=== PATIENT | female | born 2000 | race Caucasian/White ===

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

== ENCOUNTER 2019-03-04 15:10 | Emergency (ER) | payer SELFPAY ==
[2019-03-04 15:27] VITALS: BP 127/74
--- NOTE | 2019-03-04 15:37 | UC ---
Dental HPI - HPI Summary HPI Summary: [facility] Reference #: [id number] patient has had upper L wisdom tooth pain off and on for weeks. was doing well with OTC ibuprofen until pain got got worse over past 3-5 days took one vicoden from girlfriend for severe pain yesterday which worked well for several hours. she intends to see DDS MICHELLE. Pain currently 8:10 - History of Current Complaint Chief Complaint: UCDentalProblem Stated Complaint: DENTAL Hx Obtained From: Patient Hx Last Menstrual Period: [id number] ?: No Onset/Duration: Gradual Onset Severity: Severe Pain Intensity: 7 Aggravating Factor(s): Heat, Cold, Chewing Alleviating Factor(s): Other (see comments) - vicoden - Allergies/Home Medications Allergies/Adverse Reactions: Allergies Allergy/AdvReac Type Severity Reaction Status Date / Time MS Blackberry Flavor Allergy Hives Verified 03/04/19 15:28 [Blackberry Flavor] blackberry Allergy Hives Uncoded 03/04/19 15:28 Home Medications: Home Medications Acetaminophen TAB* [Tylenol TAB*] 975 mg PO Q4H PRN 03/04/19 [History Confirmed 03/04/19] Ibuprofen TAB* [Motrin TAB* 600 MG] 600 mg PO Q6H PRN 03/04/19 [History Confirmed 03/04/19] PMH/Surg Hx/FS Hx/Imm Hx Previously Healthy: Yes Psychological History: Anxiety, Depression Other History Of: Negative For: HIV, Hepatitis B, Hepatitis C, Anticoagulant Therapy - Surgical History Surgical History: Yes Surgery Procedure, Year, and Place: RIGHT ELBOW SURGERY, TOE SURGERY, 3 wisdom teeth extraction - Family History Known Family History: Positive: None, Cardiac Disease, Hypertension, Diabetes - Social History Occupation: Unemployed Lives: With Family Alcohol Use: Occasionally Substance Use Type: Marijuana Substance Use Comment - Amount & Last Used: approx every 2 days Smoking Status (MU): Current Some Day Smoker Type: Cigarettes Amount Used/How Often: 3-5 CIG PER DAY Have You Smoked in the Last Year: Yes Household Exposure Type: Cigarettes Cessation Counseling: Patient Advised to Stop - Immunization History Most Recent Influenza Vaccination: no Vaccination Up to Date: Yes Review of Systems All Other Systems Reviewed And Are Negative: Yes Constitutional: Positive: Negative. Negative: Fever, Chills Skin: Positive: Negative ENT: Positive: Dental Pain. Negative: Sinus Congestion, Sinus Pain/Tenderness Respiratory: Positive: Negative Cardiovascular: Positive: Negative Musculoskeletal: Positive: Negative Neurological: Positive: Negative Psychological: Positive: Negative Is Patient Immunocompromised?: No Physical Exam Triage Information Reviewed: Yes Appearance: Well-Appearing, Pain Distress - holding L side mouth Vital Signs: Initial Vital Signs Temp 98.6 F 03/04/19 15:22 Pulse 85 03/04/19 15:22 Resp 16 03/04/19 15:22 BP 127/74 03/04/19 15:22 Pulse Ox 99 03/04/19 15:22 Vital Signs Reviewed: Yes Dental: Positive: Percussion Tenderness @, Other: - gum is mildly swollena nd erythemic L upper 3rd molar, no drainage. Negative: Gross Decay/Caries @ - L upper wisdom tooth Neck: Positive: No Lymphadenopathy Respiratory Exam: Normal Respiratory: Positive: Lungs clear Cardiovascular Exam: Normal Cardiovascular: Positive: RRR Neurological Exam: Normal Psychological Exam: Normal Skin Exam: Normal Dental Complaint Course/Dx - Course Course Of Treatment: patient girlfriend here to drive pt home - Differential Dx/Diagnosis Differential Diagnosis/Dx: Dental Abscess, Dental Caries, Fractured Tooth, TMJ Syndrome Provider Diagnosis: Toothache Discharge - Sign-Out/Discharge Documenting (check all that apply): Patient Departure All imaging exams completed and their final reports reviewed: No Studies - Discharge Plan Condition: Stable Disposition: HOME Prescriptions: HYDROcodone/ACETAMIN 5-325 MG* [[place] 5-325 TAB*] 1 tab PO Q4H PRN #30 tab MDD 6 PRN Reason: Pain (Dental) Penicillin VK TAB* [Penicillin VK 250 mg Tab*] 250 mg PO QID #40 tab Referrals: Charla Carter MD [Primary Care Provider] - - Billing Disposition and Condition Condition: STABLE Disposition: Home
[2019-03-04] MEDS ORDERED: HYDROcodone/ACETAMIN 5-325 MG* 1 TAB PO ONE (15:45)
== END 2019-03-04 16:30 | disposition home or self-care (01) ==
LOC: UCEAST 15:10
DX: K08.89 Other specified disorders of teeth and supporting structures (principal); F17.210 Nicotine dependence, cigarettes, uncomplicated; F41.9 Anxiety disorder, unspecified; F32.9 Major depressive disorder, single episode, unspecified
CPT/HCPCS: 99212; G0463

== ENCOUNTER 2019-07-14 20:06 | Emergency (ER) | payer OTHER ==
[2019-07-14 20:23] VITALS: BP 120/74
--- NOTE | 2019-07-14 20:26 | UC ---
[facility] HPI - HPI Summary HPI Summary: She's been having a toothache in the upper left side for many months on and off. She was seen here in February and prescribed antibiotics and pain medication. She has for dialysis and states she has been unable to find a dental practice to follow up with. She's been using ibuprofen but it isn't helping the last few days. - History of Current Complaint Stated Complaint: TOOTH PAIN Time Seen by Provider: 07/14/19 20:17 Hx Obtained From: Patient Hx Last Menstrual Period: [id number] Onset/Duration: Gradual Onset, Lasting Weeks Severity: Moderate - Allergies/Home Medications Allergies/Adverse Reactions: Allergies Allergy/AdvReac Type Severity Reaction Status Date / Time blackberry Allergy Hives Uncoded 07/14/19 20:19 PMH/Surg Hx/FS Hx/Imm Hx Previously Healthy: Yes Other History Of: Negative For: HIV, Hepatitis B, Hepatitis C, Anticoagulant Therapy - Surgical History Surgical History: Yes Surgery Procedure, Year, and Place: RIGHT ELBOW SURGERY, TOE SURGERY, 3 wisdom teeth extraction - Family History Known Family History: Positive: None, Cardiac Disease, Hypertension, Diabetes - Social History Alcohol Use: Occasionally Substance Use Type: Marijuana Substance Use Comment - Amount & Last Used: approx every 2 days Smoking Status (MU): Current Some Day Smoker Type: Cigarettes Amount Used/How Often: 3-5 CIG PER DAY Have You Smoked in the Last Year: Yes Household Exposure Type: Cigarettes - Immunization History Most Recent Influenza Vaccination: no Vaccination Up to Date: Yes Review of Systems All Other Systems Reviewed And Are Negative: Yes Constitutional: Positive: Negative Skin: Positive: Negative ENT: Positive: Dental Pain Physical Exam - Summary Physical Exam Summary: She is nontoxic in appearance with stable vitals Triage Information Reviewed: Yes Appearance: Well-Appearing Vital Signs Reviewed: Yes Eye Exam: Normal ENT Exam: Normal Dental: Positive: Gross Decay/Caries @. Negative: Abscess @, Cellulitis @, Cervical Lymphadenopathy Neck exam: Normal Neck: Positive: No Lymphadenopathy Dental Complaint Course/Dx - Course Course Of Treatment: We gave her a list of dentists that should take [facility]. I will treat her with penicillin and tramadol - Differential Dx/Diagnosis Provider Diagnosis: Tooth ache Discharge ED - Sign-Out/Discharge Documenting (check all that apply): Patient Departure All imaging exams completed and their final reports reviewed: No Studies - Discharge Plan Condition: Stable Disposition: HOME Patient Education Materials: Toothache (ED) Referrals: No Primary Care Phys,NOPCP [Primary Care Provider] - Additional Instructions: Please follow up with a dentist. We have given you a list that should except your [employer] insurance. - Billing Disposition and Condition Condition: STABLE Disposition: Home
== END 2019-07-14 20:30 | disposition home or self-care (01) ==
LOC: UCEAST 20:06
DX: K08.89 Other specified disorders of teeth and supporting structures (principal); F17.210 Nicotine dependence, cigarettes, uncomplicated; Z91.018 Allergy to other foods
CPT/HCPCS: 99212; G0463

== ENCOUNTER 2019-08-07 14:57 | Emergency (ER) | payer OTHER ==
[2019-08-07 15:09] VITALS: BP 134/73
--- NOTE | 2019-08-29 22:05 | UC ---
Dental HPI - HPI Summary HPI Summary: 19 year old female with complaints of left upper tooth pain- has an impacted wisdom tooth that she was set to get removed, however she missed her appointment with her dentist 2 days ago. Increased pain, swelling, low grade fever. no difficulty swallowing. - History of Current Complaint Chief Complaint: UCDentalProblem Stated Complaint: DENTAL COMPLAINT Time Seen by Provider: 08/07/19 15:41 Hx Obtained From: Patient Hx Last Menstrual Period: 07/20/19 ?: No Onset/Duration: Sudden Onset Severity: Moderate Pain Intensity: 6 Pain Scale Used: 0-10 Numeric Aggravating Factor(s): Chewing Alleviating Factor(s): OTC Meds - Allergies/Home Medications Allergies/Adverse Reactions: Allergies Allergy/AdvReac Type Severity Reaction Status Date / Time blackberry Allergy Hives Uncoded 08/07/19 15:08 Home Medications: Home Medications Acetaminophen [Acetaminophen Extra Strength] 500 mg PO ONCE 08/07/19 [History Confirmed 08/07/19] Ibuprofen 600 mg PO ONCE 08/07/19 [History Confirmed 08/07/19] PMH/Surg Hx/FS Hx/Imm Hx Previously Healthy: Yes Other History Of: Negative For: HIV, Hepatitis B, Hepatitis C, Anticoagulant Therapy - Surgical History Surgical History: Yes Surgery Procedure, Year, and Place: RIGHT ELBOW SURGERY, TOE SURGERY, 3 wisdom teeth extraction - Family History Known Family History: Positive: None, Cardiac Disease, Hypertension, Diabetes, Non-Contributory - Social History Lives: Alone Alcohol Use: Occasionally Substance Use Type: Marijuana Substance Use Comment - Amount & Last Used: approx every 2 days Smoking Status (MU): Current Some Day Smoker Type: Cigarettes Amount Used/How Often: 3-5 CIG PER DAY Have You Smoked in the Last Year: Yes Household Exposure Type: Cigarettes - Immunization History Most Recent Influenza Vaccination: no Vaccination Up to Date: Yes Review of Systems All Other Systems Reviewed And Are Negative: Yes Constitutional: Positive: Fever, Chills Skin: Positive: Rash, Other - swelling ENT: Positive: Ear Ache Neurological: Positive: Headache Is Patient Immunocompromised?: No Physical Exam Triage Information Reviewed: Yes Appearance: Well-Appearing, Well-Nourished, Pain Distress - mild Vital Signs: Initial Vital Signs Temp 100.1 F 08/07/19 15:05 Pulse 79 08/07/19 15:05 Resp 18 08/07/19 15:05 BP 134/73 08/07/19 15:05 Pulse Ox 100 08/07/19 15:05 Vital Signs Reviewed: Yes Eyes: Positive: Conjunctiva Clear ENT: Positive: Pharynx normal, TMs normal, Uvula midline. Negative: Tonsillar swelling, Tonsillar exudate, Sinus tenderness Dental: Positive: Other: - gingivitis left upper, mild edema around left upper jaw, TTP over harlan-aur LNs L Neck: Positive: Supple, Nontender, Enlarged Nodes @ - left periauriclar Respiratory: Positive: Chest non-tender, Lungs clear, Normal breath sounds, No respiratory distress, No accessory muscle use. Negative: Crackles, Rhonchi, Stridor Neurological Exam: Normal Psychological Exam: Normal Dental Complaint Course/Dx - Course Course Of Treatment: Dental cavity- - Follow up with Dentist- continue to find a place on [place] from the list you were given. Important to keep appointment due to possible spread of infection. - Amoxicillin twice daily x 10 days - Motrin as needed for mild to moderat pain - Tramadol as needed for severe pain - Ice area to help with pain - REutrn with increased pain, fever, chills, decreased/ painful swallowing. - Differential Dx/Diagnosis Differential Diagnosis/Dx: Dental Caries, Fractured Tooth Provider Diagnosis: Toothache Discharge ED - Sign-Out/Discharge Documenting (check all that apply): Patient Departure All imaging exams completed and their final reports reviewed: No Studies - Discharge Plan Condition: Good Disposition: HOME Prescriptions: Amoxicillin PO (*) [Amoxicillin 875 MG (*)] 875 mg PO BID #20 tab traMADol TAB* [Ultram*] 50 mg PO Q6HR PRN #6 tab MDD 3 PRN Reason: Pain - Mild Patient Education Materials: Cavity Preventive (For the teeth or gums), Toothache (ED) Referrals: [facility] [Outside] No Primary Care Phys,NOPCP [Primary Care Provider] - Additional Instructions: Dental cavity- - Follow up with Dentist- continue to find a place on [place] from the list you were given. Important to keep appointment due to possible spread of infection. - Amoxicillin twice daily x 10 days - Motrin as needed for mild to moderat pain - Tramadol as needed for severe pain - Ice area to help with pain - REutrn with increased pain, fever, chills, decreased/ painful swallowing. - Billing Disposition and Condition Condition: GOOD Disposition: Home
== END 2019-08-07 16:07 | disposition home or self-care (01) ==
LOC: UCEAST 14:57
DX: K08.89 Other specified disorders of teeth and supporting structures (principal); K05.10 Chronic gingivitis, plaque induced; R22.0 Localized swelling, mass and lump, head; Z91.018 Allergy to other foods; Z72.0 Tobacco use
CPT/HCPCS: 99212; G0463